=== PATIENT | female | born 1990 | race Two or more races ===

== ENCOUNTER 2017-12-19 08:08 | Day surgery (SDC) | payer BC ==
[2017-12-19] MEDS ORDERED: Lactated Ringers 1,000 ML IV SCH (08:15)
[2017-12-19] MEDS ORDERED: Sodium Chloride 0.9% 10 ML Syringe FLUSH PRN (08:15)
[2017-12-19] MEDS ORDERED: Lidocaine 2% 100 MG/5 ML Syringe IVPUSH ONE (10:00)
[2017-12-19] MEDS ORDERED: Midazolam 1 MG/ML 2 ML SDV IV ONE (10:00)
[2017-12-19] MEDS ORDERED: Propofol 200 MG/20 ML SDV IV ONE (10:00)
--- NOTE | 2017-12-19 10:18 | PCM.HPR ---
H & P Addendum review - H & P Addendum Review Date of Original H & P: 12/15/17 Date Reviewed: 12/19/17 Time Reviewed: 09:45 Patient was Examined: No Changes
--- NOTE | 2017-12-19 20:33 | OR ---
DATE OF OPERATION: 12/19/2017 SURGEON: Rashaad Avery MD PREOPERATIVE DIAGNOSIS: Epigastric pain. POSTOPERATIVE DIAGNOSIS: Normal Esophagogastroduodenoscopy. PROCEDURE: Esophagogastroduodenoscopy. ANESTHESIA: IV sedation. PROCEDURE IN DETAIL: The patient was brought to the procedure room, where she was placed on her left side and IV sedation administered. The oral bite block was placed and the upper endoscope advanced into the esophagus under direct vision without difficulty. Vocal cords were viewed and were normal. The scope was advanced to the third portion of the duodenum, the duodenum and pylorus were normal. Antrum was normal with some mild erythema on the folds but no mucosal erosions, ulcerations, or other concerns. The body and fundus were normal. Retroflexion is normal. There was no hiatal hernia. Air was removed from the stomach and the scope withdrawn through the esophagus, which all appeared normal. There was no evidence of reflux esophagitis. Photographs were taken. The patient tolerated the procedure well and returned to recovery in stable condition. /[id number] SCARLETT/CONSTANCE
== END 2017-12-19 11:09 | disposition home or self-care (01) ==
LOC: FB.SDS 08:08
PROVIDERS: ATTEND Surgery
DX: R10.13 Epigastric pain (principal); Z91.011 Allergy to milk products
CPT/HCPCS: 43235; 81025; J2250; J2704; J7120

== ENCOUNTER 2017-12-26 08:58 | Day surgery (SDC) | payer BC ==
[2017-12-26] MEDS ORDERED: Lactated Ringers 1,000 ML IV SCH (09:00)
[2017-12-26] MEDS ORDERED: Sodium Chloride 0.9% 10 ML Syringe FLUSH PRN (09:00)
--- NOTE | 2017-12-26 10:22 | PCM.HPR ---
H & P Addendum review - H & P Addendum Review Date of Original H & P: 12/18/17 Date Reviewed: 12/26/17 Time Reviewed: 10:00 Patient was Examined: No Changes
[2017-12-26] MEDS ORDERED: Succinylcholine 200 MG/10 ML MDV IV ONE (10:25)
[2017-12-26] MEDS ORDERED: diphenhydrAMINE 50 MG/ML SDV IV ONE (10:25)
[2017-12-26] MEDS ORDERED: Dexamethasone 4 MG/ML 5 ML MDV IVPUSH ONE (10:25)
[2017-12-26] MEDS ORDERED: Neostigmine Methylsulfate 1 MG/ML 5 ML Syringe IV ONE (10:25)
[2017-12-26] MEDS ORDERED: Glycopyrrolate 0.2 MG/ML 2 ML SDV IV ONE (10:25)
[2017-12-26] MEDS ORDERED: Propofol 200 MG/20 ML SDV IV ONE (10:25)
[2017-12-26] MEDS ORDERED: Ondansetron 4 MG/2 ML SDV IVPUSH ONE (10:25)
[2017-12-26] MEDS ORDERED: Lactated Ringers 1,000 ML IV ONE (10:25)
[2017-12-26] MEDS ORDERED: Midazolam 1 MG/ML 2 ML SDV IV ONE (10:25)
[2017-12-26] MEDS ORDERED: Rocuronium 100 MG/10 ML MDV IV ONE (10:25)
[2017-12-26] MEDS ORDERED: fentaNYL 100 MCG/2 ML SDV IV ONE (10:25)
--- NOTE | 2017-12-26 11:37 | PCM.OPNOTE ---
- General Post-Op/Procedure Note Date of Surgery/Procedure: 12/26/17 Operative Procedure(s): Lap Jenny Pre Op Diagnosis: Chronic Cholecystitis Post-Op Diagnosis: Same Anesthesia Technique: General ET Tube Primary Surgeon: Rashaad Avery Anesthesia Provider: Evelin Peña Pathology: Gallbladder EBL in mLs: 10 Complications: None Condition: Good
[2017-12-26] MEDS ORDERED: Acetaminophen/HYDROcodone 325-5 MG Tab PO PRN (11:39)
[2017-12-26] MEDS: Morphine 2 MG/ML Syringe IVPUSH PRN ×6 (11:50→14:24)
--- NOTE | 2017-12-26 17:49 | OR ---
DATE OF OPERATION: 12/26/2017 SURGEON: Rashaad Avery MD PREOPERATIVE DIAGNOSIS: Chronic cholecystitis. POSTOPERATIVE DIAGNOSIS: Chronic cholecystitis. OPERATION PERFORMED: Laparoscopic cholecystectomy. MEDICAL CLAIMS REPRESENTATIVE: None. ANESTHESIA: General. PROCEDURE: The patient was brought to the operating room, where general endotracheal anesthesia was administered. The abdomen was prepped with ChloraPrep and draped sterilely. An infraumbilical incision was made and extended into the peritoneal cavity without difficulty. The Robert cannulator was introduced and a pneumoperitoneum obtained. The remaining three 5-mm ports were placed in the usual positions. General exploration revealed the surface of the liver, stomach, omentum, bowel, and peritoneal surfaces to be normal. The gallbladder was grasped and retracted cephalad. The cystic artery and cystic duct were clearly dissected free. Minimal oozing occurred during the dissection. The cystic artery was doubly clipped proximally and once distally and then transected. A small posterior branch of the cystic artery was doubly clipped proximally and then cauterized. The anatomy of the cystic duct was reconfirmed and could be seen entering the gallbladder and extending towards the common bile duct. This was doubly clipped proximally and once distally and then transected. The gallbladder was then removed from the bed of the liver using electrocautery without difficulty. No bile leakage occurred. The gallbladder was brought out through the umbilical incision. The right upper quadrant was irrigated and inspected, return was clear, and hemostasis was assured. Ports were removed under direct vision and remained hemostatic. The umbilical fascia was closed with [id number] #0 Vicryl. The skin was closed with #4-0 Vicryl subcuticular sutures. Benzoin and Steri-Strips were placed and Band-Aids applied. The patient tolerated the procedure well. Estimated blood loss is 10 mL. Patient returned to postanesthesia in stable condition. /[id number] 1721 [place]LETT/CONSTANCE
== END 2017-12-26 14:54 | disposition home or self-care (01) ==
LOC: FB.SDS 08:58
PROVIDERS: ATTEND Surgery
DX: K81.1 Chronic cholecystitis (principal); Z91.011 Allergy to milk products
CPT/HCPCS: 47562; 81025; 88304; J0131; J0330; J1100; J1200; J2250; J2270; J2405; J2704; J3010; J7120; J3490

== ENCOUNTER 2024-08-25 13:13 | Emergency (ER) | payer OTHER | END 2024-08-25 13:55 | disposition home or self-care (01) | LOC: FB.ED 13:13 | DX: S90.31XA Contusion of right foot, initial encounter (principal); E66.9 Obesity, unspecified; Z90.49 Acquired absence of other specified parts of digestive tract; Z79.899 Other long term (current) drug therapy; Z91.048 Other nonmedicinal substance allergy status; W20.8XXA Other cause of strike by thrown, projected or falling object, initial encounter | CPT/HCPCS: 73630-RT; 99282; 99283 ==